=== PATIENT | female | born 1990 | race African-American/Black ===

== ENCOUNTER 2017-05-03 20:04 | Emergency (ER) | payer MEDICAID ==
[~2017-05-03] VITALS: Ht 175.3 cm; Wt 100.0 kg
[2017-05-03 20:58] VITALS: BP 182/59
== END 2017-05-03 21:50 | disposition left against medical advice (07) ==
LOC: ER 20:04
DX: Z53.21 Procedure and treatment not carried out due to patient leaving prior to being seen by health care provider (principal)

== ENCOUNTER 2018-03-30 17:06 | Emergency (ER) | payer MEDICAID ==
[~2018-03-30] VITALS: Ht 182.9 cm; Wt 136.5 kg
[2018-03-30] MEDS ORDERED: [UNRECOGNIZED DRUG - OTHER] (17:27)
[2018-03-30] MEDS ORDERED: ALBU6.7H9 INH (17:27)
[2018-03-30] MEDS ORDERED: ACETAMINOPHEN WITH CODEINE 300/30MG TABLET PO ONE (18:00)
[2018-03-30 19:20] VITALS: BP 151/89
== END 2018-03-30 19:24 | disposition home or self-care (01) ==
LOC: ER 17:06
DX: S52.691A Other fracture of lower end of right ulna, initial encounter for closed fracture (principal); J45.909 Unspecified asthma, uncomplicated; F17.200 Nicotine dependence, unspecified, uncomplicated; W01.198A Fall on same level from slipping, tripping and stumbling with subsequent striking against other object, initial encounter; Y93.E5 Activity, floor mopping and cleaning; Y92.89 Other specified places as the place of occurrence of the external cause; Z88.6 Allergy status to analgesic agent
CPT/HCPCS: 29125; 73110; 81025; 99283

== ENCOUNTER 2021-10-11 15:27 | Emergency (ER) | payer MEDICAID ==
[~2021-10-11] VITALS: Ht 180.3 cm; Wt 145.0 kg
[~2021-10-11 15:27] MED LIST: ALBU6.7H9 INH; [UNRECOGNIZED DRUG - OTHER]
[2021-10-11 15:39] VITALS: BP 149/74
== END 2021-10-11 17:35 | disposition home or self-care (01) ==
LOC: ER 15:27
DX: R10.2 Pelvic and perineal pain (principal); J45.909 Unspecified asthma, uncomplicated; Z88.6 Allergy status to analgesic agent; Z98.890 Other specified postprocedural states
CPT/HCPCS: 81025; 99284

== ENCOUNTER 2024-03-30 18:03 | Emergency (ER) | payer MEDICAID ==
[~2024-03-30] VITALS: Ht 172.7 cm; Wt 136.0 kg
[~2024-03-30 18:03] MED LIST changes: +ALBU6.7H3 INH; -ALBU6.7H9 INH
[2024-03-30 18:04] VITALS: O2SAT 96
[2024-03-30 18:11] VITALS: BP 149/81; PULSE 121; RESP 18; O2SAT 100
[2024-03-30 18:46] VITALS: TEMP 103.1
[2024-03-30] MEDS: ACETAMINOPHEN 325MG TABLET PO NR (18:46)
[2024-03-30] MEDS ORDERED: ACET-2708 MT (19:29)
[2024-03-30] MEDS ORDERED: TAM75 MT (19:29)
== END 2024-03-30 21:06 | disposition home or self-care (01) ==
LOC: ER 18:03
DX: B34.9 Viral infection, unspecified (principal); J45.909 Unspecified asthma, uncomplicated; Z88.6 Allergy status to analgesic agent; Z68.42 Body mass index [BMI] 45.0-49.9, adult
CPT/HCPCS: 71045; 99283; Z7610 ×2; A4606